=== PATIENT | male | born 1980 | race Caucasian/White ===

== ENCOUNTER 2025-05-30 01:42 | Inpatient (IN) | payer OTHER, SELFPAY ==
--- NOTE | ~2025-05-30 | XR_ITS ---
CLINICAL HISTORY: CP 1 view chest x-ray. Comparison: None provided Findings: The lungs appear clear. There is no consolidation, effusion, or pneumothorax. Cardiomediastinal silhouette is within normal limits. IMPRESSION: No acute cardiopulmonary abnormality. This document has been electronically signed by: Tang Mcpherson MD on 05/30/2025 03:21:56
[2025-05-30 01:46] VITALS: BP 130/80; PULSE 100; O2SAT 98
[2025-05-30 01:50] VITALS: BP 141/84; PULSE 98; RESP 16; TEMP 36.8; O2SAT 98; BMI 32.2
--- NOTE | 2025-05-30 02:34 | PC.NURSE ---
Pt present to the ED with complaints of an allergic reaction. states he ingested peanut butter to get to somewhere safe. He reports he heard someone yell shooting, shooting! , get him! PT also endorsing SI. VSS- respirations even and unlabored, skin intact and smooth no in any acute distress. PT noted to be picking at his skin believes as he has bed bugs under skin and in ear. Appears paranoid. Denies recreational drug use. Pt changed over, sitter at bedside. Plan of care ongoing
--- NOTE | 2025-05-30 02:35 | MHC.EDTECH ---
belongings done by security team rosana correa. all drug paraphernalia discarded by security. hatchet found secured and locked up by security. belongings searched by security and list made by them and entered by me as the tech. All belongings with the exception of the black hatchet and misc pills placed in luli port shelf 1
--- NOTE | 2025-05-30 02:38 | ECG_ITS ---
Test Reason : ALLERGIC REACTION Blood Pressure : */* mmHG Vent. Rate : 97 BPM Atrial Rate : 97 BPM P-R Int : 164 ms QRS Dur : 82 ms QT Int : 382 ms P-R-T Axes : 28 51 32 degrees QTcB Int : 485 ms Normal sinus rhythm Prolonged QT Abnormal ECG When compared with ECG of 21-Oct-2008 18:02, ST no longer elevated in Anterior leads QT has lengthened Referred By: Generic ED Physician Electronically Signed By: CARRILLO WHATLEY
[2025-05-30 04:00] VITALS: BP 123/66; PULSE 81; RESP 16; TEMP 37.1; O2SAT 95
[2025-05-30 04:03] LABS: Hematocrit 34.6 % (42.0-52.0); Hemoglobin 11.9 g/dl (14.0-18.0); Imm Gran Abs Auto 0.02 X10*3/uL (0.00-0.03); Imm Gran Pct Auto 0.4 % (0.0-0.4); Lymphocytes Absolute Auto 1.8 X10*3/uL (1.2-4.9); MANUAL DIFF FLAG NO; Mean Corpuscular HGB Conc 34.4 g/dl (31.0-36.0); Mean Corpuscular Hemoglobin 26.3 pg (27.0-33.0); Mean Corpuscular Volume 76.5 fL (80.0-98.0); NRBC Abs Auto 0.000 X10*3/uL (0.0-0.012); NRBC Pct Auto 0.0 /100WBC (0.0-0.2); Platelet Count 172 X10*3/uL (160-400); Red Blood Count 4.52 X10*6/uL (4.60-5.80); White Blood Count 5.7 X10*3/uL (4.8-10.8)
[2025-05-30 04:25] LABS: Alanine Aminotransferase 32 U/L (0-40); Albumin Level 4.1 g/dL (3.5-5.0); Alkaline Phosphatase 79 U/L (39-117); Anion Gap 13 (12-20); Aspartate Amino Transferase 62 U/L (5-37); Blood Urea Nitrogen 13 mg/dL (9-16); Calcium 9.1 mg/dL (8.4-10.2); Carbon Dioxide 24 mmol/L (22-29); Chloride 101 mmol/L (96-108); Creatinine Clr Calc Pharmacy 133.5; Estimated Glomerular Filt Rate > 60; Potassium 2.8 mmol/L (3.3-5.1); Sodium 135 mmol/L (135-145); Total Protein 7.2 g/dL (6.5-8.0)
[2025-05-30 04:52] LABS: Magnesium 1.9 mg/dL (1.6-2.6)
--- NOTE | 2025-05-30 05:05 | PC.NURSE ---
PT refusing IV placement. Educated on need d/t low potassium and risk. PT continues to refused.
[2025-05-30 06:00] VITALS: BP 115/70; PULSE 66; RESP 14; TEMP 37; O2SAT 99
[2025-05-30] MEDS: Potassium Chloride Packet 20 MEQ PACKET 40 MEQ PO (06:29)
[2025-05-30 07:57] LABS: Cannabinoid Screen Urine POSITIVE (Not Detect)
--- NOTE | 2025-05-30 08:24 | ED_ITS ---
HPI - Allergic Reaction General Chief complaint: Allergic Reaction Stated complaint: ALLERGIC REACTION ?PEANUT BUTTER Time Seen by Provider: 05/30/25 07:52 Source: patient and EMS Mode of arrival: EMS Limitations: altered mental status History of Present Illness ED Provider: HPI narrative: 44-year-old male with polysubstance use disorder, reported eating peanut butter though he states he is allergic to be in the bladder when he presented he received 50 mg intramuscular Benadryl, he has had a flat affect, reporting that someone is trying to kill him and he ate peanut butter so you can come somewhere safe. Active SI at bedside Related Data Home Medications ?Medication ?Instructions ?Recorded ?Confirmed emtricitabine 200 mg-rilpivirine 1 tab PO DAILY 05/30/25 25 mg-tenofovir alafenam 25 mg tablet (Odefsey) famotidine 40 mg tablet 40 mg PO DAILY 05/30/2505/05 Allergies Allergy/AdvReac Type Severity Reaction Status Date / Time Peanut Butter Allergy Shortness Verified 05/30/25 01:53 of Breath Review of Systems 2 Constitutional: Constitutional: Reports as per HPI [facility] Social History Social History Alcohol intake: current Alcohol intake frequency: 3 or more drinks per day Smoked in Last 30 Days: Yes Use of substances other than those prescribed or required for medical reasons: Yes Substance Use Type: Former Substance User Advance Directives: No Do you have a plan to hurt others: No Plan Physical Exam ED Vital Signs: Vital Signs - 24 hr 05/30/25 01:50 05/30/25 04:00 05/30/25 06:00 Temperature 98.3 F 98.8 F 98.6 F Pulse Rate 98 81 66 Respiratory Rate 16 16 14 Blood Pressure 141/84 H 123/66 115/70 Pulse Oximetry 98 95 99 Oxygen Delivery Method Room Air Room Air Room Air BMI result Body Mass Index 32.2 Const Other: * Gen: Somewhat sedate after Benadryl * HEENT: Uvula midline, no angioedema * Neck: Supple, no LAD * CV: RRR, no obvious murmurs appreciated * Resp: ?No wheezing rales rhonchi no stridor moving air well * Abd: ?Bowel sounds are present, no tenderness no rebound no rigidity * MSK: FROM, strength 5/5 all extremities * Skin: Warm, dry, intact, * Neuro: ?Alert and oriented x3, moving upper and lower extremities symmetrically, no obvious facial asymmetry noted * Psych: Flat affect, delusional, positive SI Medications Administered Discontinued Medications Generic Name Dose Route Start Last Admin Trade Name Marcelle PRN Reason Stop Dose Admin Potassium Chloride 40 meq 05/30/25 05:57 05/30/25 06:29 Potassium Chloride Packet 20 Meq Packet PO 05/30/25 05:58 40 meq ONCE ONE Administration Medical Decision Making Medical Decision Making [facility] Narrative: As far as peanut allergies, patient received Benadryl add I gave oral steroids, he has no angioedema, no wheezing, no respiratory distress no urticaria, he is endorsing active SI with polysubstance use disorder, anticipate that he will be psych admission Differential Diagnosis Differential Diagnoses: The differential diagnosis associated with the presentation includes Admission/Observation Consideration of admission/observation: Escalation of care including admission/observation considered Lab Data [facility] Lab Attestation statement: I reviewed the patient's lab results. 05/30/25 03:58 05/30/25 03:58 Labs: Lab Results 05/30/25 05/30/25 Range/Units 03:58 07:42 WBC 5.7 (4.8-10.8) X10*3/uL RBC 4.52 L (4.60-5.80) X10*6/uL Hgb 11.9 L (14.0-18.0) g/dl Hct 34.6 L (42.0-52.0) % MCV 76.5 L (80.0-98.0) fL MCH 26.3 L (27.0-33.0) pg MCHC 34.4 (31.0-36.0) g/dl RDW 16.4 H (11.0-16.0) % Plt Count 172 (160-400) X10*3/uL MPV 10.7 (9.4-12.4) fL Immature Gran % (Auto) 0.4 (0.0-0.4) % Neut % (Auto) 56.5 (45-73) % Lymph % (Auto) 30.8 (20-40) % [place] % (Auto) 8.8 (2-11) % Eos % (Auto) 3.3 (0-4) % Baso % (Auto) 0.2 (0-2) % Lymph # (Auto) 1.8 (1.2-4.9) X10*3/uL [place] # (Auto) 0.5 (0.1-1.2) X10*3/uL Eos # (Auto) 0.2 (0.0-0.4) X10*3/uL Baso # (Auto) 0.0 (0.0-0.2) X10*3/uL Abs Immat Gran (auto) 0.02 (0.00-0.03) X10*3/uL Absolute Neuts (auto) 3.2 (2.0-8.3) x10*3/uL Absolute Nucleated RBC 0.000 (0.0-0.012) X10*3/uL Nucleated RBC % (auto) 0.0 (0.0-0.2) /100WBC Sodium 135 (135-145) mmol/L Potassium 2.8 L* (3.3-5.1) mmol/L Chloride 101 (96-108) mmol/L Carbon Dioxide 24 (22-29) mmol/L Anion Gap 13 (12-20) BUN 13 (9-16) mg/dL Creatinine 0.81 (0.5-1.4) mg/dL Estim Creat Clear Calc 133.5 Estimated GFR > 60 Random Glucose 102 (60-115) mg/dL Calcium 9.1 (8.4-10.2) mg/dL Magnesium 1.9 (1.6-2.6) mg/dL Total Bilirubin 0.4 (0.0-1.0) mg/dL AST 62 H (5-37) U/L ALT 32 (0-40) U/L Alkaline Phosphatase 79 (39-117) U/L Total Protein 7.2 (6.5-8.0) g/dL Albumin 4.1 (3.5-5.0) g/dL Urine Opiates Screen POSITIVE H (Not Detect) Ur Buprenorphine Scrn Not Detected (Not Detect) ng/mL Ur Oxycodone Screen Not Detected (Not Detect) ng/mL Urine Methadone Screen Positive H (Not Detect) ng/mL Urine Fentanyl Screen POSITIVE H (Not Detect) Ur Barbiturates Screen Not Detected (Not Detect) Ur Phencyclidine Scrn Not Detected (Not Detect) Ur Amphetamines Screen Not Detected (Not Detect) U Benzodiazepines Scrn POSITIVE H (Not Detect) Urine Cocaine Screen POSITIVE H (Not Detect) U Marijuana (THC) Screen POSITIVE H (Not Detect) Ethyl Alcohol < 10 mg/dL Independent Interpretation I performed an independent interpretation of an: EKG (97 beats per minute otherwise normal ECG without dysrhythmia, AV sangeetha blocks or ST-T changes to suspect underlying ACS, my independent interpretation) Independent Historian Clinical information obtained from an independent historian. History obtained from or confirmed by: EMS Critical Care Time Critical Care Time Critical Care Time: Yes Total Critical Care Time: 42 Attestation: Time is exclusive of separately billable procedures. Time includes: direct patient care, patient reassessment, coordination of patient care, interpretation of data (laboratory data, pulse oximetry, arterial blood gases and chest xrays), review of patient's medical records, medical consultation and documentation of patient care. Procedures excluded from critical care time: central intravenous line placement and electrocardiography. Discharge Plan Discharge Clinical Impression: Suicidal behavior with attempted self-injury, Allergic to peanuts, Polysubstance dependence Prescriptions: No Action famotidine 40 mg tablet 40 mg PO DAILY Odefsey 200-25-25 mg tablet 1 tab PO DAILY Print Language: Angolan
--- NOTE | 2025-05-30 08:48 | MHC.CARE ---
Pt meets the criteria for inpatient level of care. Section 12a in chart. ED provider in agreement.
[2025-05-30 08:49] LABS: Appearance Urine Turbid; Glucose Urine UA Negative (Negative); PH 6.0 (5.0-9.0); Specific Gravity - Urine 1.025 (1.005-1.025)
--- NOTE | 2025-05-30 09:22 | PC.NURSE ---
patient requested his methadone dose, states hes dosed at [facility] in [place]. called to verify dose, patient is no longer at this clinic was d/c when he stopped presenting in march of 2025. patient informed
[2025-05-30 11:21] LABS: Alanine Aminotransferase 31 U/L (0-40); Albumin Level 4.0 g/dL (3.5-5.0); Alkaline Phosphatase 81 U/L (39-117); Anion Gap 7 (12-20); Aspartate Amino Transferase 51 U/L (5-37); Blood Urea Nitrogen 10 mg/dL (9-16); Calcium 9.0 mg/dL (8.4-10.2); Carbon Dioxide 28 mmol/L (22-29); Chloride 103 mmol/L (96-108); Creatinine Clr Calc Pharmacy 159.0; Estimated Glomerular Filt Rate > 60; Potassium 3.1 mmol/L (3.3-5.1); Sodium 135 mmol/L (135-145); Total Protein 7.1 g/dL (6.5-8.0)
[2025-05-30 13:15] VITALS: BP 121/71; PULSE 65; RESP 18; TEMP 36.9; O2SAT 98
--- NOTE | 2025-05-30 14:40 | HE.PHANOTE ---
Addendum entered by Alicia Otero [facility] 05/30/25 14:59: Per nurse Carito Gonzalez, he took 45 mg sunday 05/27 . Original Note: RE: METHADONE DOSING Last dose of methadone 45 mg was given daily take home, given dose for 05/26 and 05/27 per JONG Smith at [facility] [phone].
[2025-05-30] MEDS: methADONE HCl 20 MG/2 ML ORAL.CONC 30 MG PO (16:02)
[2025-05-30 16:11] VITALS: BMI 30.4
--- NOTE | 2025-05-30 17:10 | PC.ADMIT ---
Sumit is a 44yr old male, with polysubstance use disorder, being admitted to today, on a CV, for treatment of SI/CAH/HI. He presented to the ED after reportedly eating peanut butter knowing he is allergic. Sumit reported the belief that someone is trying to kill him and he knew that eating the peanut butter would get home somewhere safe. Sumit reportedly had a recent admission to [facility] a few weeks ago. He endorses SI with a plan to cut or hang himself, as well as CAH telling him to harm others. He does not specify a plan or a targeted individual. Sumit is able to contract for safety while here on the unit. He denies current community psych providers. He?s been seen by [facility] in 2022, [employer] in 2021 & was at [facility] in 2017 s/p suicide attempt. Sumit is alert, oriented x4 and cooperative with the admission process, although limited participation in further assessment. He declines to discuss trauma history, nor is there any documented. He reports being homeless in the [place] area. His skin check is unremarkable with the exception of multiple tattoos & what appears to be old self-harm cutting scars on his forearms. UTOX is positive for opiates, methadone, fentanyl, benzos, cocaine & marijuana. Sumit is active with [facility] for Methadone and his last dose was confirmed. He was oriented to the unit & has been placed on 15min safety checks. Sumit went to sleep & has declined to sign any releases at this time.
[2025-05-30 20:00] VITALS: BP 119/60; PULSE 61; RESP 16; TEMP 36.6; O2SAT 95
[2025-05-31] MEDS: methADONE HCl 20 MG/2 ML ORAL.CONC 45 MG PO (07:49)
[2025-05-31 08:00] VITALS: BP 126/63; PULSE 56; RESP 18; TEMP 36.6; O2SAT 97
[2025-05-31] MEDS: Emtricitabine/Tenofov Alafenam TABLET 1 TAB PO (08:16)
--- NOTE | 2025-05-31 08:51 | HO.PSYADMNOT ---
HPI Date of Service: 05/31/25 Chief Complaint: SI Sources of Information: patient interviewed, chart reviewed and crisis/core team assessment reviewed HPI Subjective Notes: Reyes Warning, Conditional Voluntary and 3 Day Narrative: And initially seen on 05/30/2025; seen again on 05/31/2025; patient seen with licensing engineer Joanne Patient is a 44-year-old male with history of heroin/cocaine abuse, history of inpatient admissions, who is allergic to peanut butter who self-presents with paranoid ideations prompting him to eat peanut butter to cause an allergic reaction. Regarding why patient came to the hospital: Patient says that he came to the hospital because they were going to. do something to me.. Kill me... But he does not know why. He said people with sticks and guns surrounded me... I had to make a scene like I was going to have an allergic reaction so I could get away... Patient says that I was talking to a person and people were passing by, they were looking at me, some were standing at the corner but they kept walking because they knew there were cameras. They would follow me... If I looked at them they would just passed by and pretend not to follow me... Regarding the guns and sticks, patient said that when he looked at them they would hide their guns (and sticks) in a tree so that the police would not see... But he did not actually see the gun. Patient denies any AVH. Patient denies any SI at all and or that eating peanut butter was in any way a suicide attempt; rather he reiterates that he ate the peanut butter in an attempt to get away from these people since allergic reaction would get him to the hospital. Patient said he did not have much of an allergic reaction but self presented to the hospital anyway. Patient reports daily cocaine/opiate IV use; denies any alcohol. Earlier to nursing staff he reportedly endorsed SI and CAH Past Psychiatric History: recent admission to [facility] a few weeks ago seen by [facility] in 2022, [employer] in 2021 & was at [facility] in 2017 s/p suicide attempt. [facility] for Methadone Medical Evaluation Reviewed: Yes [facility] Medical History (Updated 05/31/25 @ 16:33 by Ted Frank MD) Heroin use disorder, severe Cocaine use disorder Psychotic disorder Family History: Deferred Social History: Born in [place] Been in the [place] for about 2 years Homeless Substance History: Reports cocaine/heroin abuse since he was about 13 years old Trauma History: Defer Diagnostics Vital Signs (24Hr): Vital Signs - 24 hr 05/30/25 13:15 05/30/25 20:00 Temperature 98.5 F 97.8 F Pulse Rate 65 61 Respiratory Rate 18 16 Blood Pressure 121/71 119/60 Pulse Oximetry 98 95 Oxygen Delivery Method Room Air Room Air BMI result Body Mass Index 30.4 Labs 05/30/25 03:58 05/31/25 09:22 Labs: Laboratory Results - last 48 hr 05/30/25 05/30/25 05/30/25 03:58 07:42 10:53 WBC 5.7 RBC 4.52 L Hgb 11.9 L Hct 34.6 L MCV 76.5 L MCH 26.3 L MCHC 34.4 RDW 16.4 H Plt Count 172 MPV 10.7 Immature Gran % (Auto) 0.4 Neut % (Auto) 56.5 Lymph % (Auto) 30.8 [place] % (Auto) 8.8 Eos % (Auto) 3.3 Baso % (Auto) 0.2 Lymph # (Auto) 1.8 [place] # (Auto) 0.5 Eos # (Auto) 0.2 Baso # (Auto) 0.0 Abs Immat Gran (auto) 0.02 Absolute Neuts (auto) 3.2 Absolute Nucleated RBC 0.000 Nucleated RBC % (auto) 0.0 Sodium 135 135 Potassium 2.8 L* 3.1 L Chloride 101 103 Carbon Dioxide 24 28 Anion Gap 13 7 L BUN 13 10 Creatinine 0.81 0.68 Estim Creat Clear Calc 133.5 159.0 Estimated GFR > 60 > 60 Random Glucose 102 114 Calcium 9.1 9.0 Magnesium 1.9 Total Bilirubin 0.4 0.4 AST 62 H 51 H ALT 32 31 Alkaline Phosphatase 79 81 Total Protein 7.2 7.1 Albumin 4.1 4.0 Urine Color Dark Yellow Urine Appearance Turbid Urine pH 6.0 Ur Specific [place] 1.025 Urine Protein Trace Urine Glucose (UA) Negative Urine Ketones Trace Urine Blood Negative Urine Nitrite Negative Ur Leukocyte Esterase Negative Urine Opiates Screen POSITIVE H Ur Buprenorphine Scrn Not Detected Ur Oxycodone Screen Not Detected Urine Methadone Screen Positive H Urine Fentanyl Screen POSITIVE H Ur Barbiturates Screen Not Detected Ur Phencyclidine Scrn Not Detected Ur Amphetamines Screen Not Detected U Benzodiazepines Scrn POSITIVE H Urine Cocaine Screen POSITIVE H U Marijuana (THC) Screen POSITIVE H Ethyl Alcohol < 10 Meds/Allergies Meds Home Medications ?Medication ?Instructions ?Recorded ?Confirmed ?Type emtricitabine 200 mg-rilpivirine 1 tab PO DAILY 05/30/25 05/30/25 History 25 mg-tenofovir alafenam 25 mg tablet (Odefsey) famotidine 40 mg tablet 40 mg PO DAILY 05/30/25 05/30/25 History methadone 5 mg/5 mL oral solution 45 mg PO DAILY 05/30/25 05/30/25 History Allergies Allergies Allergy/AdvReac Type Severity Reaction Status Date / Time Peanut Butter Allergy Shortness Verified 05/30/25 01:53 of Breath Mental Status Exam Mental Status Exam Narrative: Pt is alert and oriented; behavior is isolative, guarded, mostly cooperative on approach; patient is not in distress; dressed in casual attire, disheveled; mood is described as anxious and affect congruent; eye contact appropriate; Speech is normal rate, volume and prosody and not pressured; psychomotor retardation present; thought process is goal directed, concrete; Thought content is on paranoid ideations; denies any SI/HI. Denies AVH Patients insight and judgment impaired Assessment & Plan Assessment & Plan (1) Psychotic disorder: Status: Acute Code(s): F29 - Unspecified psychosis not due to a substance or known physiological condition (2) Cocaine use disorder: Status: Acute Code(s): F14.10 - Cocaine abuse, uncomplicated (3) Heroin use disorder, severe: Status: Acute Code(s): F11.20 - Opioid dependence, uncomplicated Plan HPI: Patient is a 44-year-old male with history of heroin/cocaine abuse, history of inpatient admissions, who is allergic to peanut butter who self-presents with paranoid ideations prompting him to eat peanut butter to cause an allergic reaction. Regarding why patient came to the hospital: Patient says that he came to the hospital because they were going to. do something to me.. Kill me... But he does not know why. He said people with sticks and guns surrounded me... I had to make a scene like I was going to have an allergic reaction so I could get away... Patient says that I was talking to a person and people were passing by, they were looking at me, some were standing at the corner but they kept walking because they knew there were cameras. They would follow me... If I looked at them they would just passed by and pretend not to follow me... Regarding the guns and sticks, patient said that when he looked at them they would hide their guns (and sticks) in a tree so that the police would not see... But he did not actually see the gun. Patient denies any AVH. Patient denies any SI at all and or that eating peanut butter was in any way a suicide attempt; rather he reiterates that he ate the peanut butter in an attempt to get away from these people since allergic reaction would get him to the hospital. Patient said he did not have much of an allergic reaction but self presented to the hospital anyway. Patient reports daily cocaine/opiate IV use; denies any alcohol. Earlier to nursing staff he reportedly endorsed SI and CAH Formulation/clinical reasoning: Patient reports paranoid ideations; to technical proposal writer he denies any AVH but it seems he reported AH earlier to a nurse. Patient has a history of inpatient psychiatric admissions. Can not find any history of medication prescriptions and patient said the only psychiatric medication he has been on before was Seroquel 25 mg b.i.d.. 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 Will help treat withdrawal and consider antipsychotic medication Plan: CV Q 15 minute checks Comfort medications for opiate withdrawal Methadone 45 mg daily Consider risperidone Patient educated on: diagnosis, medication risk/benefits and substance abuse Informed Consent: does not understand Reason for continued inpatient stay Substantial Risk for: inability to function Statement Statement: I have reviewed the history and physical and performed a pertinent examination on my patient. No changes have occurred unless specified. If the History and Physical was not performed prior to admission, the Hospitalist's service will be consulted for completing the admission physical. Time Spent With Patient Time: Total time managing care of this patient today ____ minutes.
[2025-05-31 09:55] LABS: Anion Gap 11 (12-20); Blood Urea Nitrogen 11 mg/dL (9-16); Calcium 9.4 mg/dL (8.4-10.2); Carbon Dioxide 29 mmol/L (22-29); Chloride 103 mmol/L (96-108); Creatinine Clr Calc Pharmacy 134.8; Estimated Glomerular Filt Rate > 60; Potassium 3.6 mmol/L (3.3-5.1); Sodium 139 mmol/L (135-145)
[2025-05-31 09:58] LABS: Hemoglobin A1C 130.7542 umol/L; Total Hemoglobin (HGBA1C) 3425.4904 umol/L
[2025-05-31 10:05] LABS: Cholesterol 88 mg/dL (<200); HDL Cholesterol 30 mg/dL (>40); Triglycerides 60 mg/dL (<150)
[2025-05-31 16:27] VITALS: BP 110/65
--- NOTE | 2025-05-31 17:28 | PC.NURSE ---
Met with Sumit after receiving a Comprehensive Care consult from his provider. Sumit was quiet and had just woken up. After explaining care options offered and informing TW that he has been on methadone, for a long time -he expressed interest in a Invoicing Specialist facilitated through [facility]. An referral will be sent to [facility] and they will reach out directly to Sumit and set up services for him once discharged. Sumit was given [facility] information and informed of walk in hours if there is any outpatient recovery needs in the future with the exception of methadone therapy.
[2025-06-01] MEDS: methADONE HCl 20 MG/2 ML ORAL.CONC 45 MG PO (08:05)
[2025-06-01 08:17] VITALS: BP 129/74; PULSE 61; TEMP 36.1; O2SAT 95
[2025-06-01] MEDS: Emtricitabine/Tenofov Alafenam TABLET 1 TAB PO (09:35)
--- NOTE | 2025-06-01 09:44 | HO.PSYCHPN ---
Subjective Subjective Date of Service: 06/01/25 Reason For Visit: SI Interim History: met with patient; discussed with team; seen with Sustainability Purchasing Agent (Kelly) pt guarded, vague; says he's good He denies any SI or HI or CAH; senior medical writer asked about this report he gave to nursing, but patient says he does not remember ever saying those things. He says he has a little AH but does not want to talk about it...says he has no other thoughts about his report yesterday of people chasing him with guns and sticks. He agrees to start on Risperdal. confirms HIV status and says regularly attends clinic in [place] [employer] Regarding substance abuse, patient clearly says he does not want any increase in Methadone; he is ambivalent about programs pt asked about 3 day which was explained again Mental Status Exam Mental Status Exam Narrative: Pt is alert and oriented; behavior is isolative, guarded, superficially cooperative on approach; patient is not in distress; dressed in casual attire, disheveled; mood is described as good though affect constricted; eye contact appropriate; Speech is normal rate, volume and prosody and not pressured; psychomotor retardation present; thought process is goal directed, concrete; Thought content is somewhat vacant; not sure if he's thinking about paranoid ideations; denies any SI/HI. AH a little Patients insight and judgment impaired Diagnostics Vital Signs (24Hr): Vital Signs - 24 hr 05/31/25 16:27 05/31/25 20:00 06/01/25 08:17 Temperature 96.9 F Pulse Rate 61 Blood Pressure 110/65 129/74 Pulse Oximetry 95 Oxygen Delivery Method Room Air Room Air BMI result Body Mass Index 30.4 Labs 05/30/25 03:58 05/31/25 09:22 Labs: Laboratory Results - last 48 hr 05/30/25 05/31/25 10:53 09:22 Sodium 135 139 Potassium 3.1 L 3.6 Chloride 103 103 Carbon Dioxide 28 29 Anion Gap 7 L 11 L BUN 10 11 Creatinine 0.68 0.78 Estim Creat Clear Calc 159.0 134.8 Estimated GFR > 60 > 60 Random Glucose 114 91 Estimat Average Glucose 114 Hemoglobin A1c % 5.6 Calcium 9.0 9.4 Total Bilirubin 0.4 AST 51 H ALT 31 Alkaline Phosphatase 81 Total Protein 7.1 Albumin 4.0 Triglycerides 60 Cholesterol 88 LDL Cholesterol, Calc 46 HDL Cholesterol 30 L TSH 0.88 Medications Medications Current Medications Acetaminophen (Acetaminophen 325 Mg Tablet) 650 mg PO Q6H PRN PRN Reason: Headache/Pain, Scale 1-10 Al Hydroxide/Mg Hydroxide (Magnesium Hydrox/Alum Hydrox 30 Ml Oral.Susp) 30 ml PO Q6H PRN PRN Reason: Heartburn/Nausea Clonidine HCl (Clonidine Hcl 0.1 Mg Tablet) 0.1 mg PO Q4H PRN; Protocol PRN Reason: mod anxiety/withdrawal symp Last Admin: 05/31/25 16:27 Dose: 0.1 mg Cyclobenzaprine HCl (Cyclobenzaprine Hcl 10 Mg Tablet) 10 mg PO TID PRN PRN Reason: muscle aches Last Admin: 05/31/25 16:27 Dose: 10 mg Dicyclomine HCl (Dicyclomine Hcl 10 Mg Capsule) 10 mg PO TID PRN PRN Reason: stomach cramps Last Admin: 05/31/25 16:29 Dose: 10 mg Emtricitabine/Tenofovir Alafenamide (Emtricitabine/Tenofov Alafenam Tablet) 1 tab PO DAILY [facility] Last Admin: 06/01/25 09:35 Dose: 1 tab Folic Acid (Folic Acid 1 Mg Tablet) 1 mg PO DAILY [facility] Last Admin: 06/01/25 09:35 Dose: 1 mg Hydroxyzine HCl (Hydroxyzine Hcl 25 Mg Tablet) 25 mg PO Q6H PRN PRN Reason: mild anxiety Loperamide HCl (Loperamide Hcl 2 Mg Capsule) 2 mg PO Q4H PRN PRN Reason: loose stool Magnesium Hydroxide (Milk Of Magnesia 30 Ml Oral.Susp) 30 ml PO DAILY PRN PRN Reason: Constipation Methadone HCl (Methadone Hcl 20 Mg/2 Ml Oral.Conc) 45 mg PO DAILY [facility] Last Admin: 06/01/25 08:05 Dose: 45 mg Nicotine (Nicotine 21 Mg Patch.Td24) 21 mg TRANSDERMA DAILY PRN PRN Reason: smoking cessation Nicotine Polacrilex (Nicotine Polacrilex 2 Mg Gum) 4 mg BUCCAL Q2H PRN PRN Reason: Nicotine Cravings Last Admin: 05/30/25 18:40 Dose: 4 mg Olanzapine (Olanzapine 5 Mg Tablet) 5 mg PO TID PRN PRN Reason: agitation Rilpivirine (Rilpivirine Hcl 25 Mg Tablet) 25 mg PO DAILY [facility] Last Admin: 06/01/25 09:35 Dose: 25 mg Thiamine HCl (Thiamine Hcl 100 Mg Tablet) 100 mg PO DAILY [facility] Last Admin: 06/01/25 09:35 Dose: 100 mg Trazodone HCl (Trazodone Hcl 50 Mg Tablet) 50 mg PO BEDTIME MRX1 PRN PRN Reason: Insomnia Allergies Allergies Allergy/AdvReac Type Severity Reaction Status Date / Time Peanut Butter Allergy Shortness Verified 05/30/25 01:53 of Breath Assessment & Plan Assessment & Plan (1) Psychotic disorder: Status: Acute Code(s): F29 - Unspecified psychosis not due to a substance or known physiological condition (2) Cocaine use disorder: Status: Acute Code(s): F14.10 - Cocaine abuse, uncomplicated (3) Heroin use disorder, severe: Status: Acute Code(s): F11.20 - Opioid dependence, uncomplicated (4) HIV (human immunodeficiency virus infection): Status: Acute Code(s): Z21 - Asymptomatic human immunodeficiency virus [HIV] infection status Plan HPI: Patient is a 44-year-old male with history of heroin/cocaine abuse, history of inpatient admissions, who is allergic to peanut butter who self-presents with paranoid ideations prompting him to eat peanut butter to cause an allergic reaction. Regarding why patient came to the hospital: Patient says that he came to the hospital because they were going to. do something to me.. Kill me... But he does not know why. He said people with sticks and guns surrounded me... I had to make a scene like I was going to have an allergic reaction so I could get away... Patient says that I was talking to a person and people were passing by, they were looking at me, some were standing at the corner but they kept walking because they knew there were cameras. They would follow me... If I looked at them they would just passed by and pretend not to follow me... Regarding the guns and sticks, patient said that when he looked at them they would hide their guns (and sticks) in a tree so that the police would not see... But he did not actually see the gun. Patient denies any AVH. Patient denies any SI at all and or that eating peanut butter was in any way a suicide attempt; rather he reiterates that he ate the peanut butter in an attempt to get away from these people since allergic reaction would get him to the hospital. Patient said he did not have much of an allergic reaction but self presented to the hospital anyway. Patient reports daily cocaine/opiate IV use; denies any alcohol. Earlier to nursing staff he reportedly endorsed SI and CAH Formulation/clinical reasoning: Patient reports paranoid ideations; to senior medical writer he denies any AVH but it seems he reported AH earlier to a nurse. Patient has a history of inpatient psychiatric admissions. Can not find any history of medication prescriptions and patient said the only psychiatric medication he has been on before was Seroquel 25 mg b.i.d.. 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 Will help treat withdrawal and consider antipsychotic medication Hospital course: 06/01 pt guarded, vague; says he's good He denies any SI or HI or CAH; senior medical writer asked about this report he gave to nursing, but patient says he does not remember ever saying those things. He says he has a little AH but does not want to talk about it...says he has no other thoughts about his report yesterday of people chasing him with guns and sticks. He agrees to start on Risperdal. -confirms HIV status and says regularly attends clinic in [place] -Regarding substance abuse, patient clearly says he does not want any increase in Methadone; he is ambivalent about programs -pt asked about 3 day which was explained again Plan: CV Q 15 minute checks Comfort medications for opiate withdrawal Methadone 45 mg daily Start Risperdal 1mg bID Patient educated on: diagnosis, medication risk/benefits, substance abuse, therapeutic strategies and medical condition Informed Consent: understands Reason for continued inpatient stay Substantial Risk for: stable for discharge, rapid decompensation and med/psych decompensation Time Spent With Patient Time: Total time managing care of this patient today ____ minutes.
--- NOTE | 2025-06-02 00:09 | MHC.RECOVRN ---
TW met with the patient on 05/31/25? in 506-1 to discuss current substance use and concerns related to increased risk of substance and related problems after a consult was placed to addiction medicine for polysubstance use. On approach pt was laying in bed, blanket over head, assumingly sleeping. Pt woke to name being called and agreed to meet with tw. Pt reported receiving 45mg of methadone daily at [facility] but states he continues to use substances including opiates, cocaine, and marijuana. He reported experiencing withdrawal symptoms of sweating, stomach cramping and diarrhea. He asked for his methadone to be increased by 5mg. This information was relayed to primary provider Ted Frank.? Pt reported several instances of overdoses in the past but denied the use of narcan. He reports several detox admissions but is unable to recall names of facilities or dates of treatment. Pt states he is currently unhoused and lacks any recovery support other than his OTP clinic, [facility].? Discussed how substance use has impacted health, including negative impact on mental health and overall physical well being.? Discussed risk and reduction strategies including utilizing [employer] for clean supplies and drug testing, never using alone, and having Narcan readily available.? Provided pt with written resources including information on inpatient and outpatient treatment, MOUD, harm reduction, and recovery coaching.? Also provided pt with information on the multiple pathways to recovery and a local NA meeting list. Pt reports he will continue methadone dosing at [facility] upon discharge and declines further intervention or outpatient appt for treatment related to OUD at this time. ? Pt was provided with TW?s contact information if questions or concerns arise. Pt denies further questions or concerns at this time.?
[2025-06-02] MEDS: methADONE HCl 20 MG/2 ML ORAL.CONC 45 MG PO (07:58)
[2025-06-02 08:30] VITALS: BP 99/55; PULSE 70; RESP 18; TEMP 36.8; O2SAT 97
[2025-06-02] MEDS: Emtricitabine/Tenofov Alafenam TABLET 1 TAB PO (08:59)
--- NOTE | 2025-06-02 12:44 | P.PNPSI_ITS ---
Subjective Subjective Date of Service: 06/02/25 Reason For Visit: SI Interim History: Laying in bed. Sleeping most of day. Guarded. Patient reports feeling fine ; he reports sleeping okay last night. declined to meet with T/W. denies SI/HI/VH/AH. Continue current tx plan. Medication Compliance: Yes Side effects from medications: No Attending Groups: No Mental Status Exam Mental Status Exam Patient Appearance: Disheveled Patient Orientation: Person, Place, Time and Situation Level of Consciousness: Drowsy Patient Behavior: Guarded Mood Description: Calm Affect Description: Calm Ability to Follow Directions: Good Speech Pattern: Clear Memory Description: Intact Hallucinations: None Delusions: Not Present Thought Process: Intact Thought Content: positive for Intact Diagnostics Vital Signs (24Hr): Vital Signs - 24 hr 06/02/25 08:30 Temperature 98.2 F Pulse Rate 70 Respiratory Rate 18 Blood Pressure 99/55 L Pulse Oximetry 97 Oxygen Delivery Method Room Air BMI result Body Mass Index 30.4 Labs 05/30/25 03:58 05/31/25 09:22 Medications Medications Current Medications Acetaminophen (Acetaminophen 325 Mg Tablet) 650 mg PO Q6H PRN PRN Reason: Headache/Pain, Scale 1-10 Last Admin: 06/01/25 22:01 Dose: 650 mg Al Hydroxide/Mg Hydroxide (Magnesium Hydrox/Alum Hydrox 30 Ml Oral.Susp) 30 ml PO Q6H PRN PRN Reason: Heartburn/Nausea Clonidine HCl (Clonidine Hcl 0.1 Mg Tablet) 0.1 mg PO Q4H PRN; Protocol PRN Reason: mod anxiety/withdrawal symp Last Admin: 05/31/25 16:27 Dose: 0.1 mg Cyclobenzaprine HCl (Cyclobenzaprine Hcl 10 Mg Tablet) 10 mg PO TID PRN PRN Reason: muscle aches Last Admin: 06/02/25 09:01 Dose: 10 mg Dicyclomine HCl (Dicyclomine Hcl 10 Mg Capsule) 10 mg PO TID PRN PRN Reason: stomach cramps Last Admin: 05/31/25 16:29 Dose: 10 mg Emtricitabine/Tenofovir Alafenamide (Emtricitabine/Tenofov Alafenam Tablet) 1 tab PO DAILY [facility] Last Admin: 06/02/25 08:59 Dose: 1 tab Folic Acid (Folic Acid 1 Mg Tablet) 1 mg PO DAILY [facility] Last Admin: 06/02/25 08:59 Dose: 1 mg Hydroxyzine HCl (Hydroxyzine Hcl 25 Mg Tablet) 25 mg PO Q6H PRN PRN Reason: mild anxiety Loperamide HCl (Loperamide Hcl 2 Mg Capsule) 2 mg PO Q4H PRN PRN Reason: loose stool Magnesium Hydroxide (Milk Of Magnesia 30 Ml Oral.Susp) 30 ml PO DAILY PRN PRN Reason: Constipation Methadone HCl (Methadone Hcl 20 Mg/2 Ml Oral.Conc) 45 mg PO DAILY [facility] Last Admin: 06/02/25 07:58 Dose: 45 mg Nicotine (Nicotine 21 Mg Patch.Td24) 21 mg TRANSDERMA DAILY PRN PRN Reason: smoking cessation Nicotine Polacrilex (Nicotine Polacrilex 2 Mg Gum) 4 mg BUCCAL Q2H PRN PRN Reason: Nicotine Cravings Last Admin: 05/30/25 18:40 Dose: 4 mg Olanzapine (Olanzapine 5 Mg Tablet) 5 mg PO TID PRN PRN Reason: agitation Rilpivirine (Rilpivirine Hcl 25 Mg Tablet) 25 mg PO DAILY [facility] Last Admin: 06/02/25 08:59 Dose: 25 mg Risperidone (Risperidone 1 Mg Tablet) 1 mg PO BID [facility] Last Admin: 06/02/25 08:59 Dose: 1 mg Thiamine HCl (Thiamine Hcl 100 Mg Tablet) 100 mg PO DAILY [facility] Last Admin: 06/02/25 08:59 Dose: 100 mg Trazodone HCl (Trazodone Hcl 50 Mg Tablet) 50 mg PO BEDTIME MRX1 PRN PRN Reason: Insomnia Allergies Allergies Allergy/AdvReac Type Severity Reaction Status Date / Time Peanut Butter Allergy Shortness Verified 05/30/25 01:53 of Breath Assessment & Plan Assessment & Plan (1) Psychotic disorder: Status: Acute Code(s): F29 - Unspecified psychosis not due to a substance or known physiological condition (2) Cocaine use disorder: Status: Acute Code(s): F14.10 - Cocaine abuse, uncomplicated (3) Heroin use disorder, severe: Status: Acute Code(s): F11.20 - Opioid dependence, uncomplicated (4) HIV (human immunodeficiency virus infection): Status: Acute Code(s): Z21 - Asymptomatic human immunodeficiency virus [HIV] infection status Plan HPI: Patient is a 44-year-old male with history of heroin/cocaine abuse, history of inpatient admissions, who is allergic to peanut butter who self-presents with paranoid ideations prompting him to eat peanut butter to cause an allergic reaction. Regarding why patient came to the hospital: Patient says that he came to the hospital because they were going to. do something to me.. Kill me... But he does not know why. He said people with sticks and guns surrounded me... I had to make a scene like I was going to have an allergic reaction so I could get away... Patient says that I was talking to a person and people were passing by, they were looking at me, some were standing at the corner but they kept walking because they knew there were cameras. They would follow me... If I looked at them they would just passed by and pretend not to follow me... Regarding the guns and sticks, patient said that when he looked at them they would hide their guns (and sticks) in a tree so that the police would not see... But he did not actually see the gun. Patient denies any AVH. Patient denies any SI at all and or that eating peanut butter was in any way a suicide attempt; rather he reiterates that he ate the peanut butter in an attempt to get away from these people since allergic reaction would get him to the hospital. Patient said he did not have much of an allergic reaction but self presented to the hospital anyway. Patient reports daily cocaine/opiate IV use; denies any alcohol. Earlier to nursing staff he reportedly endorsed SI and CAH Formulation/clinical reasoning: Patient reports paranoid ideations; to documentation writer he denies any AVH but it seems he reported AH earlier to a nurse. Patient has a history of inpatient psychiatric admissions. Can not find any history of medication prescriptions and patient said the only psychiatric medication he has been on before was Seroquel 25 mg b.i.d.. 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 Will help treat withdrawal and consider antipsychotic medication Hospital course: 06/01 pt guarded, vague; says he's good He denies any SI or HI or CAH; documentation writer asked about this report he gave to nursing, but patient says he does not remember ever saying those things. He says he has a little AH but does not want to talk about it...says he has no other thoughts about his report yesterday of people chasing him with guns and sticks. He agrees to start on Risperdal. -confirms HIV status and says regularly attends clinic in [place] -Regarding substance abuse, patient clearly says he does not want any increase in Methadone; he is ambivalent about programs -pt asked about 3 day which was explained again 06/02: Laying in bed. Sleeping most of day. Guarded. Patient reports feeling fine ; he reports sleeping okay last night. declined to meet with T/W. denies SI/HI/VH/AH. Continue current tx plan. Plan: CV Q 15 minute checks Comfort medications for opiate withdrawal Methadone 45 mg daily Start Risperdal 1mg bID Patient educated on: medication risk/benefits Reason for continued inpatient stay Substantial Risk for: med/psych decompensation Time Spent With Patient Time: Total time managing care of this patient today _10___ minutes.
[2025-06-02 20:00] VITALS: BP 124/57; PULSE 73; TEMP 36.8; O2SAT 98
[2025-06-03] MEDS: methADONE HCl 20 MG/2 ML ORAL.CONC 45 MG PO (07:43)
[2025-06-03 08:00] VITALS: BP 109/61; PULSE 68; RESP 16; TEMP 37.1; O2SAT 100
[2025-06-03] MEDS: Emtricitabine/Tenofov Alafenam TABLET 1 TAB PO (08:44)
[2025-06-03] MEDS: Nicotine 21 MG PATCH.TD24 TRANSDERMA (11:13)
--- NOTE | 2025-06-03 12:05 | P.PNPSI_ITS ---
Subjective Subjective Date of Service: 06/03/25 Reason For Visit: SI Interim History: Active on unit. keeping to self. pacing unit hallway while listening to music. Patient reports feeling okay ; denies SI/HI/VH/AH. Continue current tx plan. Medication Compliance: Yes Side effects from medications: No Attending Groups: No Mental Status Exam Mental Status Exam Patient Appearance: Well Grooomed Patient Orientation: Person, Place, Time and Situation Level of Consciousness: Awake Patient Behavior: Guarded Mood Description: Calm Affect Description: Calm Ability to Follow Directions: Good Speech Pattern: Clear Memory Description: Intact Hallucinations: None Delusions: Not Present Thought Process: Intact Thought Content: positive for Intact Diagnostics Vital Signs (24Hr): Vital Signs - 24 hr 06/02/25 20:00 06/03/25 08:00 Temperature 98.2 F 98.7 F Pulse Rate 73 68 Respiratory Rate 16 Blood Pressure 124/57 L 109/61 Pulse Oximetry 98 100 Oxygen Delivery Method Room Air Room Air BMI result Body Mass Index 30.4 Labs 05/30/25 03:58 05/31/25 09:22 Medications Medications Current Medications Acetaminophen (Acetaminophen 325 Mg Tablet) 650 mg PO Q6H PRN PRN Reason: Headache/Pain, Scale 1-10 Last Admin: 06/02/25 21:16 Dose: 650 mg Al Hydroxide/Mg Hydroxide (Magnesium Hydrox/Alum Hydrox 30 Ml Oral.Susp) 30 ml PO Q6H PRN PRN Reason: Heartburn/Nausea Clonidine HCl (Clonidine Hcl 0.1 Mg Tablet) 0.1 mg PO Q4H PRN; Protocol PRN Reason: mod anxiety/withdrawal symp Last Admin: 05/31/25 16:27 Dose: 0.1 mg Cyclobenzaprine HCl (Cyclobenzaprine Hcl 10 Mg Tablet) 10 mg PO TID PRN PRN Reason: muscle aches Last Admin: 06/02/25 21:17 Dose: 10 mg Dicyclomine HCl (Dicyclomine Hcl 10 Mg Capsule) 10 mg PO TID PRN PRN Reason: stomach cramps Last Admin: 05/31/25 16:29 Dose: 10 mg Emtricitabine/Tenofovir Alafenamide (Emtricitabine/Tenofov Alafenam Tablet) 1 tab PO DAILY [facility] Last Admin: 06/03/25 08:44 Dose: 1 tab Folic Acid (Folic Acid 1 Mg Tablet) 1 mg PO DAILY [facility] Last Admin: 06/03/25 08:45 Dose: 1 mg Hydroxyzine HCl (Hydroxyzine Hcl 25 Mg Tablet) 25 mg PO Q6H PRN PRN Reason: mild anxiety Loperamide HCl (Loperamide Hcl 2 Mg Capsule) 2 mg PO Q4H PRN PRN Reason: loose stool Magnesium Hydroxide (Milk Of Magnesia 30 Ml Oral.Susp) 30 ml PO DAILY PRN PRN Reason: Constipation Methadone HCl (Methadone Hcl 20 Mg/2 Ml Oral.Conc) 45 mg PO DAILY [facility] Last Admin: 06/03/25 07:43 Dose: 45 mg Nicotine (Nicotine 21 Mg Patch.Td24) 21 mg TRANSDERMA DAILY PRN PRN Reason: smoking cessation Last Admin: 06/03/25 11:13 Dose: 21 mg Nicotine Polacrilex (Nicotine Polacrilex 2 Mg Gum) 4 mg BUCCAL Q2H PRN PRN Reason: Nicotine Cravings Last Admin: 06/03/25 11:13 Dose: 4 mg Olanzapine (Olanzapine 5 Mg Tablet) 5 mg PO TID PRN PRN Reason: agitation Rilpivirine (Rilpivirine Hcl 25 Mg Tablet) 25 mg PO DAILY [facility] Last Admin: 06/03/25 08:44 Dose: 25 mg Risperidone (Risperidone 1 Mg Tablet) 1 mg PO BID [facility] Last Admin: 06/03/25 08:44 Dose: 1 mg Thiamine HCl (Thiamine Hcl 100 Mg Tablet) 100 mg PO DAILY [facility] Last Admin: 06/03/25 08:44 Dose: 100 mg Trazodone HCl (Trazodone Hcl 50 Mg Tablet) 50 mg PO BEDTIME MRX1 PRN PRN Reason: Insomnia Allergies Allergies Allergy/AdvReac Type Severity Reaction Status Date / Time Peanut Butter Allergy Shortness Verified 05/30/25 01:53 of Breath Assessment & Plan Assessment & Plan (1) Psychotic disorder: Status: Acute Code(s): F29 - Unspecified psychosis not due to a substance or known physiological condition (2) Cocaine use disorder: Status: Acute Code(s): F14.10 - Cocaine abuse, uncomplicated (3) Heroin use disorder, severe: Status: Acute Code(s): F11.20 - Opioid dependence, uncomplicated (4) HIV (human immunodeficiency virus infection): Status: Acute Code(s): Z21 - Asymptomatic human immunodeficiency virus [HIV] infection status Plan HPI: Patient is a 44-year-old male with history of heroin/cocaine abuse, history of inpatient admissions, who is allergic to peanut butter who self-presents with paranoid ideations prompting him to eat peanut butter to cause an allergic reaction. Regarding why patient came to the hospital: Patient says that he came to the hospital because they were going to. do something to me.. Kill me... But he does not know why. He said people with sticks and guns surrounded me... I had to make a scene like I was going to have an allergic reaction so I could get away... Patient says that I was talking to a person and people were passing by, they were looking at me, some were standing at the corner but they kept walking because they knew there were cameras. They would follow me... If I looked at them they would just passed by and pretend not to follow me... Regarding the guns and sticks, patient said that when he looked at them they would hide their guns (and sticks) in a tree so that the police would not see... But he did not actually see the gun. Patient denies any AVH. Patient denies any SI at all and or that eating peanut butter was in any way a suicide attempt; rather he reiterates that he ate the peanut butter in an attempt to get away from these people since allergic reaction would get him to the hospital. Patient said he did not have much of an allergic reaction but self presented to the hospital anyway. Patient reports daily cocaine/opiate IV use; denies any alcohol. Earlier to nursing staff he reportedly endorsed SI and CAH Formulation/clinical reasoning: Patient reports paranoid ideations; to telegraphic typewriter operator he denies any AVH but it seems he reported AH earlier to a nurse. Patient has a history of inpatient psychiatric admissions. Can not find any history of medication prescriptions and patient said the only psychiatric medication he has been on before was Seroquel 25 mg b.i.d.. 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 Will help treat withdrawal and consider antipsychotic medication Hospital course: 06/01 pt guarded, vague; says he's good He denies any SI or HI or CAH; telegraphic typewriter operator asked about this report he gave to nursing, but patient says he does not remember ever saying those things. He says he has a little AH but does not want to talk about it...says he has no other thoughts about his report yesterday of people chasing him with guns and sticks. He agrees to start on Risperdal. -confirms HIV status and says regularly attends clinic in [place] -Regarding substance abuse, patient clearly says he does not want any increase in Methadone; he is ambivalent about programs -pt asked about 3 day which was explained again 06/02: Laying in bed. Sleeping most of day. Guarded. Patient reports feeling fine ; he reports sleeping okay last night. declined to meet with T/W. denies SI/HI/VH/AH. Continue current tx plan. 06/03: Active on unit. keeping to self. pacing unit hallway while listening to music. Patient reports feeling okay ; denies SI/HI/VH/AH. Continue current tx plan. Plan: CV Q 15 minute checks Comfort medications for opiate withdrawal Methadone 45 mg daily Start Risperdal 1mg bID Patient educated on: diagnosis and medication risk/benefits Reason for continued inpatient stay Substantial Risk for: med/psych decompensation Time Spent With Patient Time: Total time managing care of this patient today _15___ minutes.
[2025-06-03 19:47] VITALS: BP 112/70; PULSE 86; RESP 16; TEMP 36.8; O2SAT 99
[2025-06-04] MEDS: methADONE HCl 20 MG/2 ML ORAL.CONC 45 MG PO (07:51)
[2025-06-04 08:00] VITALS: BP 114/64; PULSE 74; RESP 16; TEMP 36.6; O2SAT 96
[2025-06-04] MEDS: Nicotine 21 MG PATCH.TD24 TRANSDERMA (08:40)
[2025-06-04] MEDS: Emtricitabine/Tenofov Alafenam TABLET 1 TAB PO (08:41)
--- NOTE | 2025-06-04 11:53 | P.PNPSI_ITS ---
Subjective Subjective Date of Service: 06/04/25 Reason For Visit: SI Interim History: Napping most of morning. Guarded. Patient reports feeling okay ; pt stated, I just want to go home . denies SI/HI/VH/AH. Continue current tx plan. Medication Compliance: Yes Side effects from medications: No Attending Groups: No Mental Status Exam Mental Status Exam Patient Appearance: Well Grooomed Patient Orientation: Person, Place, Time and Situation Level of Consciousness: Drowsy Patient Behavior: Guarded Mood Description: Calm Affect Description: Calm Ability to Follow Directions: Good Speech Pattern: Clear Memory Description: Intact Hallucinations: None Delusions: Not Present Thought Process: Intact Thought Content: positive for Intact Diagnostics Vital Signs (24Hr): Vital Signs - 24 hr 06/03/25 19:47 06/04/25 08:00 Temperature 98.2 F 98 F Pulse Rate 86 74 Respiratory Rate 16 16 Blood Pressure 112/70 114/64 Pulse Oximetry 99 96 Oxygen Delivery Method Room Air Room Air BMI result Body Mass Index 30.4 Labs 05/30/25 03:58 05/31/25 09:22 Medications Medications Current Medications Acetaminophen (Acetaminophen 325 Mg Tablet) 650 mg PO Q6H PRN PRN Reason: Headache/Pain, Scale 1-10 Last Admin: 06/02/25 21:16 Dose: 650 mg Al Hydroxide/Mg Hydroxide (Magnesium Hydrox/Alum Hydrox 30 Ml Oral.Susp) 30 ml PO Q6H PRN PRN Reason: Heartburn/Nausea Clonidine HCl (Clonidine Hcl 0.1 Mg Tablet) 0.1 mg PO Q4H PRN; Protocol PRN Reason: mod anxiety/withdrawal symp Last Admin: 05/31/25 16:27 Dose: 0.1 mg Cyclobenzaprine HCl (Cyclobenzaprine Hcl 10 Mg Tablet) 10 mg PO TID PRN PRN Reason: muscle aches Last Admin: 06/03/25 21:38 Dose: 10 mg Dicyclomine HCl (Dicyclomine Hcl 10 Mg Capsule) 10 mg PO TID PRN PRN Reason: stomach cramps Last Admin: 05/31/25 16:29 Dose: 10 mg Emtricitabine/Tenofovir Alafenamide (Emtricitabine/Tenofov Alafenam Tablet) 1 tab PO DAILY [facility] Last Admin: 06/04/25 08:41 Dose: 1 tab Folic Acid (Folic Acid 1 Mg Tablet) 1 mg PO DAILY [facility] Last Admin: 06/04/25 08:41 Dose: 1 mg Hydroxyzine HCl (Hydroxyzine Hcl 25 Mg Tablet) 25 mg PO Q6H PRN PRN Reason: mild anxiety Loperamide HCl (Loperamide Hcl 2 Mg Capsule) 2 mg PO Q4H PRN PRN Reason: loose stool Magnesium Hydroxide (Milk Of Magnesia 30 Ml Oral.Susp) 30 ml PO DAILY PRN PRN Reason: Constipation Methadone HCl (Methadone Hcl 20 Mg/2 Ml Oral.Conc) 45 mg PO DAILY [facility] Last Admin: 06/04/25 07:51 Dose: 45 mg Nicotine (Nicotine 21 Mg Patch.Td24) 21 mg TRANSDERMA DAILY PRN PRN Reason: smoking cessation Last Admin: 06/04/25 08:40 Dose: 21 mg Nicotine Polacrilex (Nicotine Polacrilex 2 Mg Gum) 4 mg BUCCAL Q2H PRN PRN Reason: Nicotine Cravings Last Admin: 06/04/25 08:43 Dose: 4 mg Olanzapine (Olanzapine 5 Mg Tablet) 5 mg PO TID PRN PRN Reason: agitation Rilpivirine (Rilpivirine Hcl 25 Mg Tablet) 25 mg PO DAILY [facility] Last Admin: 06/04/25 08:41 Dose: 25 mg Risperidone (Risperidone 1 Mg Tablet) 1 mg PO BID [facility] Last Admin: 06/04/25 08:41 Dose: 1 mg Thiamine HCl (Thiamine Hcl 100 Mg Tablet) 100 mg PO DAILY [facility] Last Admin: 06/04/25 08:41 Dose: 100 mg Trazodone HCl (Trazodone Hcl 50 Mg Tablet) 50 mg PO BEDTIME MRX1 PRN PRN Reason: Insomnia Allergies Allergies Allergy/AdvReac Type Severity Reaction Status Date / Time Peanut Butter Allergy Shortness Verified 05/30/25 01:53 of Breath Assessment & Plan Assessment & Plan (1) Psychotic disorder: Status: Acute Code(s): F29 - Unspecified psychosis not due to a substance or known physiological condition (2) Cocaine use disorder: Status: Acute Code(s): F14.10 - Cocaine abuse, uncomplicated (3) Heroin use disorder, severe: Status: Acute Code(s): F11.20 - Opioid dependence, uncomplicated (4) HIV (human immunodeficiency virus infection): Status: Acute Code(s): Z21 - Asymptomatic human immunodeficiency virus [HIV] infection status Plan HPI: Patient is a 44-year-old male with history of heroin/cocaine abuse, history of inpatient admissions, who is allergic to peanut butter who self-presents with paranoid ideations prompting him to eat peanut butter to cause an allergic reaction. Regarding why patient came to the hospital: Patient says that he came to the hospital because they were going to. do something to me.. Kill me... But he does not know why. He said people with sticks and guns surrounded me... I had to make a scene like I was going to have an allergic reaction so I could get away... Patient says that I was talking to a person and people were passing by, they were looking at me, some were standing at the corner but they kept walking because they knew there were cameras. They would follow me... If I looked at them they would just passed by and pretend not to follow me... Regarding the guns and sticks, patient said that when he looked at them they would hide their guns (and sticks) in a tree so that the police would not see... But he did not actually see the gun. Patient denies any AVH. Patient denies any SI at all and or that eating peanut butter was in any way a suicide attempt; rather he reiterates that he ate the peanut butter in an attempt to get away from these people since allergic reaction would get him to the hospital. Patient said he did not have much of an allergic reaction but self presented to the hospital anyway. Patient reports daily cocaine/opiate IV use; denies any alcohol. Earlier to nursing staff he reportedly endorsed SI and CAH Formulation/clinical reasoning: Patient reports paranoid ideations; to information writer he denies any AVH but it seems he reported AH earlier to a nurse. Patient has a history of inpatient psychiatric admissions. Can not find any history of medication prescriptions and patient said the only psychiatric medication he has been on before was Seroquel 25 mg b.i.d.. 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 Will help treat withdrawal and consider antipsychotic medication Hospital course: 06/01 pt guarded, vague; says he's good He denies any SI or HI or CAH; information writer asked about this report he gave to nursing, but patient says he does not remember ever saying those things. He says he has a little AH but does not want to talk about it...says he has no other thoughts about his report yesterday of people chasing him with guns and sticks. He agrees to start on Risperdal. -confirms HIV status and says regularly attends clinic in [place] -Regarding substance abuse, patient clearly says he does not want any increase in Methadone; he is ambivalent about programs -pt asked about 3 day which was explained again 06/02: Laying in bed. Sleeping most of day. Guarded. Patient reports feeling fine ; he reports sleeping okay last night. declined to meet with T/W. denies SI/HI/VH/AH. Continue current tx plan. 06/03: Active on unit. keeping to self. pacing unit hallway while listening to music. Patient reports feeling okay ; denies SI/HI/VH/AH. Continue current tx plan. 06/04: Continue current tx plan. Plan: CV Q 15 minute checks Comfort medications for opiate withdrawal Methadone 45 mg daily Start Risperdal 1mg bID Patient educated on: medication risk/benefits Reason for continued inpatient stay Substantial Risk for: med/psych decompensation Time Spent With Patient Time: Total time managing care of this patient today _15___ minutes.
[2025-06-04] MEDS: Milk of Magnesia 30 ML ORAL.SUSP PO (18:14)
[2025-06-04 20:00] VITALS: BP 127/78; PULSE 102; RESP 18; TEMP 36.6; O2SAT 98
[2025-06-05] MEDS: methADONE HCl 20 MG/2 ML ORAL.CONC 45 MG PO (07:59)
[2025-06-05 08:00] VITALS: BP 138/67; PULSE 63; TEMP 36.9; O2SAT 98
[2025-06-05] MEDS: Emtricitabine/Tenofov Alafenam TABLET 1 TAB PO (08:50)
[2025-06-05] MEDS: Nicotine 21 MG PATCH.TD24 TRANSDERMA (08:51)
--- NOTE | 2025-06-05 09:35 | HO.PSYCHPN ---
Subjective Subjective Date of Service: 06/05/25 Reason For Visit: SI Interim History: met with patient; discussed with team; reviewed chart Patient reports that he is doing better, mood is better, no SI, no AVH and that he would like to discharge tomorrow. Says he is still feeling anxious and clonidine has not helped (though he has only tried it once); reviewed options and patient mentioned gabapentin however he is discharging tomorrow and struggles with substance abuse thus scientific writer did not think it was a good time to start this medication. Patient says he still has some worries about the people that chased him with guns but overall not thinking about it too much Mental Status Exam Mental Status Exam Narrative: Pt is alert and oriented; behavior is cooperative, friendly on approach and calm; patient is not in distress; dressed in casual attire with braided hair and adequate hygiene; mood is described as good and affect congruent, brighter; eye contact appropriate; Speech is normal rate, volume and prosody and not pressured; no psychomotor agitation/retardation present; thought process is organized and goal directed; Thought content is on discharge; no overt delusional thinking; denies any SI/HI. Denies AVH and there is no evidence of perceptual disturbance. Patients insight and judgment fair. Diagnostics Vital Signs (24Hr): Vital Signs - 24 hr 06/04/25 20:00 06/05/25 08:00 Temperature 98 F 98.4 F Pulse Rate 102 H 63 Respiratory Rate 18 Blood Pressure 127/78 138/67 Pulse Oximetry 98 98 Oxygen Delivery Method Room Air Room Air BMI result Body Mass Index 30.4 Labs 05/30/25 03:58 05/31/25 09:22 Medications Medications Current Medications Acetaminophen (Acetaminophen 325 Mg Tablet) 650 mg PO Q6H PRN PRN Reason: Headache/Pain, Scale 1-10 Last Admin: 06/04/25 21:52 Dose: 650 mg Al Hydroxide/Mg Hydroxide (Magnesium Hydrox/Alum Hydrox 30 Ml Oral.Susp) 30 ml PO Q6H PRN PRN Reason: Heartburn/Nausea Clonidine HCl (Clonidine Hcl 0.1 Mg Tablet) 0.1 mg PO Q4H PRN; Protocol PRN Reason: mod anxiety/withdrawal symp Last Admin: 05/31/25 16:27 Dose: 0.1 mg Cyclobenzaprine HCl (Cyclobenzaprine Hcl 10 Mg Tablet) 10 mg PO TID PRN PRN Reason: muscle aches Last Admin: 06/04/25 21:53 Dose: 10 mg Dicyclomine HCl (Dicyclomine Hcl 10 Mg Capsule) 10 mg PO TID PRN PRN Reason: stomach cramps Last Admin: 05/31/25 16:29 Dose: 10 mg Emtricitabine/Tenofovir Alafenamide (Emtricitabine/Tenofov Alafenam Tablet) 1 tab PO DAILY [facility] Last Admin: 06/05/25 08:50 Dose: 1 tab Folic Acid (Folic Acid 1 Mg Tablet) 1 mg PO DAILY [facility] Last Admin: 06/05/25 08:50 Dose: 1 mg Hydroxyzine HCl (Hydroxyzine Hcl 25 Mg Tablet) 25 mg PO Q6H PRN PRN Reason: mild anxiety Loperamide HCl (Loperamide Hcl 2 Mg Capsule) 2 mg PO Q4H PRN PRN Reason: loose stool Magnesium Hydroxide (Milk Of Magnesia 30 Ml Oral.Susp) 30 ml PO DAILY PRN PRN Reason: Constipation Last Admin: 06/04/25 18:14 Dose: 30 ml Methadone HCl (Methadone Hcl 20 Mg/2 Ml Oral.Conc) 45 mg PO DAILY [facility] Last Admin: 06/05/25 07:59 Dose: 45 mg Nicotine (Nicotine 21 Mg Patch.Td24) 21 mg TRANSDERMA DAILY PRN PRN Reason: smoking cessation Last Admin: 06/05/25 08:51 Dose: 21 mg Nicotine Polacrilex (Nicotine Polacrilex 2 Mg Gum) 4 mg BUCCAL Q2H PRN PRN Reason: Nicotine Cravings Last Admin: 06/05/25 08:51 Dose: 4 mg Olanzapine (Olanzapine 5 Mg Tablet) 5 mg PO TID PRN PRN Reason: agitation Rilpivirine (Rilpivirine Hcl 25 Mg Tablet) 25 mg PO DAILY [facility] Last Admin: 06/05/25 08:50 Dose: 25 mg Risperidone (Risperidone 1 Mg Tablet) 1 mg PO BID [facility] Last Admin: 06/05/25 08:50 Dose: 1 mg Thiamine HCl (Thiamine Hcl 100 Mg Tablet) 100 mg PO DAILY [facility] Last Admin: 06/05/25 08:50 Dose: 100 mg Trazodone HCl (Trazodone Hcl 50 Mg Tablet) 50 mg PO BEDTIME MRX1 PRN PRN Reason: Insomnia Allergies Allergies Allergy/AdvReac Type Severity Reaction Status Date / Time Peanut Butter Allergy Shortness Verified 05/30/25 01:53 of Breath Assessment & Plan Assessment & Plan (1) Psychotic disorder: Status: Acute Code(s): F29 - Unspecified psychosis not due to a substance or known physiological condition (2) Cocaine use disorder: Status: Acute Code(s): F14.10 - Cocaine abuse, uncomplicated (3) Heroin use disorder, severe: Status: Acute Code(s): F11.20 - Opioid dependence, uncomplicated (4) HIV (human immunodeficiency virus infection): Status: Acute Code(s): Z21 - Asymptomatic human immunodeficiency virus [HIV] infection status Plan HPI: Patient is a 44-year-old male with history of heroin/cocaine abuse, history of inpatient admissions, who is allergic to peanut butter who self-presents with paranoid ideations prompting him to eat peanut butter to cause an allergic reaction. Regarding why patient came to the hospital: Patient says that he came to the hospital because they were going to. do something to me.. Kill me... But he does not know why. He said people with sticks and guns surrounded me... I had to make a scene like I was going to have an allergic reaction so I could get away... Patient says that I was talking to a person and people were passing by, they were looking at me, some were standing at the corner but they kept walking because they knew there were cameras. They would follow me... If I looked at them they would just passed by and pretend not to follow me... Regarding the guns and sticks, patient said that when he looked at them they would hide their guns (and sticks) in a tree so that the police would not see... But he did not actually see the gun. Patient denies any AVH. Patient denies any SI at all and or that eating peanut butter was in any way a suicide attempt; rather he reiterates that he ate the peanut butter in an attempt to get away from these people since allergic reaction would get him to the hospital. Patient said he did not have much of an allergic reaction but self presented to the hospital anyway. Patient reports daily cocaine/opiate IV use; denies any alcohol. Earlier to nursing staff he reportedly endorsed SI and CAH Formulation/clinical reasoning: Patient reports paranoid ideations; to scientific writer he denies any AVH but it seems he reported AH earlier to a nurse. Patient has a history of inpatient psychiatric admissions. Can not find any history of medication prescriptions and patient said the only psychiatric medication he has been on before was Seroquel 25 mg b.i.d.. 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 Will help treat withdrawal and consider antipsychotic medication Hospital course: 06/01 pt guarded, vague; says he's good He denies any SI or HI or CAH; scientific writer asked about this report he gave to nursing, but patient says he does not remember ever saying those things. He says he has a little AH but does not want to talk about it...says he has no other thoughts about his report yesterday of people chasing him with guns and sticks. He agrees to start on Risperdal. -confirms HIV status and says regularly attends clinic in [place] -Regarding substance abuse, patient clearly says he does not want any increase in Methadone; he is ambivalent about programs -pt asked about 3 day which was explained again 06/02: Laying in bed. Sleeping most of day. Guarded. Patient reports feeling fine ; he reports sleeping okay last night. declined to meet with T/W. denies SI/HI/VH/AH. Continue current tx plan. 06/03: Active on unit. keeping to self. pacing unit hallway while listening to music. Patient reports feeling okay ; denies SI/HI/VH/AH. Continue current tx plan. 06/04: Continue current tx plan. 06/05 Patient reports that he is doing better, mood is better, no SI, no AVH and that he would like to discharge tomorrow. Says he is still feeling anxious and clonidine has not helped (though he has only tried it once); reviewed options and patient mentioned gabapentin however he is discharging tomorrow and struggles with substance abuse thus scientific writer did not think it was a good time to start this medication. Patient says he still has some worries about the people that chased him with guns but overall not thinking about it too much -not sure exactly what to make of this reported experience and possibly there could be factual component -scientific writer asked patient if he would like to remain on the unit and continue working on things, continue with medication management and address anxiety however patient said he wants to discharge tomorrow Patient is not in imminent risk for harm to self or others; he remains vulnerable to relapse however this is a chronic struggle that will not change with longer stay on inpatient unit. Patient is appropriate to return to the community for treatment in his request for discharge honored. Plan: CV Q 15 minute checks Comfort medications for opiate withdrawal Methadone 45 mg daily Start Risperdal 1mg bID Patient educated on: diagnosis, medication risk/benefits and therapeutic strategies Informed Consent: understands Reason for continued inpatient stay Substantial Risk for: stable for discharge Time Spent With Patient Time: Total time managing care of this patient today ____ minutes.
--- NOTE | 2025-06-05 16:44 | PM.PSYDC ---
DS: Providers Provider Date of Service: 06/06/25 Date of admission: 05/30/25 11:39 Date of discharge: 06/06/25 Primary care physician: Unknown Physician Attending physician on admission: Ted Frank Consults: 05/30/25 19:05 Addiction Medicine Provider Routine Consulting Provider: Addiction Covering Reason for consultation: jo 05/31/25 09:42 Consult to Comprehensive Care [place]ine [place] [facility] [place] [facility] Attending physician on discharge: Ted Frank DS: Diagnosis Discharge Diagnosis (1) Psychotic disorder: Status: Acute (2) Cocaine use disorder: Status: Acute (3) Heroin use disorder, severe: Status: Acute (4) HIV (human immunodeficiency virus infection): Status: Acute DS: Medications Discharge Medications Home Medications: Home Medications ?Medication ?Instructions ?Recorded ?Confirmed emtricitabine 200 mg-rilpivirine 1 tab PO DAILY 05/30/25 05/30/25 25 mg-tenofovir alafenam 25 mg tablet (Han) famotidine 40 mg tablet 40 mg PO DAILY 05/30/25 05/30/25 methadone 5 mg/5 mL oral solution 45 mg PO DAILY 05/30/25 05/30/25 Mental Status Exam Mental Status Exam Narrative: Pt is alert and oriented; behavior is cooperative, friendly, calm; patient is not in distress; dressed in casual attire with braided hair and adequate hygiene; mood is described as good and affect congruent, brighter; eye contact appropriate; Speech is normal rate, volume and prosody and not pressured; no psychomotor agitation/retardation present; thought process is organized and goal directed; Thought content is on discharge; no expressed delusional thinking; denies any SI/HI. Denies AVH and there is no evidence of perceptual disturbance. Patients insight and judgment fair. Data Data Completed and Pending Completed studies during hospitalization [Text1]: 05/30/25 05/30/25 05/30/25 03:58 07:42 10:53 WBC 5.7 RBC 4.52 L Hgb 11.9 L Hct 34.6 L MCV 76.5 L MCH 26.3 L MCHC 34.4 RDW 16.4 H Plt Count 172 MPV 10.7 Immature Gran % (Auto) 0.4 Neut % (Auto) 56.5 Lymph % (Auto) 30.8 [place] % (Auto) 8.8 Eos % (Auto) 3.3 Baso % (Auto) 0.2 Lymph # (Auto) 1.8 [place] # (Auto) 0.5 Eos # (Auto) 0.2 Baso # (Auto) 0.0 Abs Immat Gran (auto) 0.02 Absolute Neuts (auto) 3.2 Absolute Nucleated RBC 0.000 Nucleated RBC % (auto) 0.0 Sodium 135 135 Potassium 2.8 L* 3.1 L Chloride 101 103 Carbon Dioxide 24 28 Anion Gap 13 7 L BUN 13 10 Creatinine 0.81 0.68 Estim Creat Clear Calc 133.5 159.0 Estimated GFR > 60 > 60 Random Glucose 102 114 Estimat Average Glucose Hemoglobin A1c % Calcium 9.1 9.0 Magnesium 1.9 Total Bilirubin 0.4 0.4 AST 62 H 51 H ALT 32 31 Alkaline Phosphatase 79 81 Total Protein 7.2 7.1 Albumin 4.1 4.0 Triglycerides Cholesterol LDL Cholesterol, Calc HDL Cholesterol TSH Urine Color Dark Yellow Urine Appearance Turbid Urine pH 6.0 Ur Specific [place] 1.025 Urine Protein Trace Urine Glucose (UA) Negative Urine Ketones Trace Urine Blood Negative Urine Nitrite Negative Ur Leukocyte Esterase Negative Urine Opiates Screen POSITIVE H Ur Buprenorphine Scrn Not Detected Ur Oxycodone Screen Not Detected Urine Methadone Screen Positive H Urine Fentanyl Screen POSITIVE H Ur Barbiturates Screen Not Detected Ur Phencyclidine Scrn Not Detected Ur Amphetamines Screen Not Detected U Benzodiazepines Scrn POSITIVE H Urine Cocaine Screen POSITIVE H U Marijuana (THC) Screen POSITIVE H Ethyl Alcohol < 10 05/31/25 09:22 WBC RBC Hgb Hct MCV MCH MCHC RDW Plt Count MPV Immature Gran % (Auto) Neut % (Auto) Lymph % (Auto) [place] % (Auto) Eos % (Auto) Baso % (Auto) Lymph # (Auto) [place] # (Auto) Eos # (Auto) Baso # (Auto) Abs Immat Gran (auto) Absolute Neuts (auto) Absolute Nucleated RBC Nucleated RBC % (auto) Sodium 139 Potassium 3.6 Chloride 103 Carbon Dioxide 29 Anion Gap 11 L BUN 11 Creatinine 0.78 Estim Creat Clear Calc 134.8 Estimated GFR > 60 Random Glucose 91 Estimat Average Glucose 114 Hemoglobin A1c % 5.6 Calcium 9.4 Magnesium Total Bilirubin AST ALT Alkaline Phosphatase Total Protein Albumin Triglycerides 60 Cholesterol 88 LDL Cholesterol, Calc 46 HDL Cholesterol 30 L TSH 0.88 Urine Color Urine Appearance Urine pH Ur Specific [place] Urine Protein Urine Glucose (UA) Urine Ketones Urine Blood Urine Nitrite Ur Leukocyte Esterase Urine Opiates Screen Ur Buprenorphine Scrn Ur Oxycodone Screen Urine Methadone Screen Urine Fentanyl Screen Ur Barbiturates Screen Ur Phencyclidine Scrn Ur Amphetamines Screen U Benzodiazepines Scrn Urine Cocaine Screen U Marijuana (THC) Screen Ethyl Alcohol DS: Summary Hospital Course Hospital Course: HPI: Patient is a 44-year-old male with history of heroin/cocaine abuse, history of inpatient admissions, who is allergic to peanut butter who self-presents with paranoid ideations prompting him to eat peanut butter to cause an allergic reaction. Regarding why patient came to the hospital: Patient says that he came to the hospital because they were going to. do something to me.. Kill me... But he does not know why. He said people with sticks and guns surrounded me... I had to make a scene like I was going to have an allergic reaction so I could get away... Patient says that I was talking to a person and people were passing by, they were looking at me, some were standing at the corner but they kept walking because they knew there were cameras. They would follow me... If I looked at them they would just passed by and pretend not to follow me... Regarding the guns and sticks, patient said that when he looked at them they would hide their guns (and sticks) in a tree so that the police would not see... But he did not actually see the gun. Patient denies any AVH. Patient denies any SI at all and or that eating peanut butter was in any way a suicide attempt; rather he reiterates that he ate the peanut butter in an attempt to get away from these people since allergic reaction would get him to the hospital. Patient said he did not have much of an allergic reaction but self presented to the hospital anyway. Patient reports daily cocaine/opiate IV use; denies any alcohol. Earlier to nursing staff he reportedly endorsed SI and CAH Hospital course: Patient reports paranoid ideations; to principal technical writer he denies any AVH but it seems he reported AH earlier to a nurse. Patient has a history of inpatient psychiatric admissions. Can not find any history of medication prescriptions and patient said the only psychiatric medication he has been on before was Seroquel 25 mg b.i.d.. 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 Will help treat withdrawal and consider antipsychotic medication 06/01 pt guarded, vague; says he's good He denies any SI or HI or CAH; principal technical writer asked about this report he gave to nursing, but patient says he does not remember ever saying those things. He says he has a little AH but does not want to talk about it...says he has no other thoughts about his report yesterday of people chasing him with guns and sticks. He agrees to start on Risperdal. -confirms HIV status and says regularly attends clinic in [place] -Regarding substance abuse, patient clearly says he does not want any increase in Methadone; he is ambivalent about programs -pt asked about 3 day which was explained again 06/02: Laying in bed. Sleeping most of day. Guarded. Patient reports feeling fine ; he reports sleeping okay last night. declined to meet with T/W. denies SI/HI/VH/AH. Continue current tx plan. 06/03: Active on unit. keeping to self. pacing unit hallway while listening to music. Patient reports feeling okay ; denies SI/HI/VH/AH. Continue current tx plan. 06/04: Continue current tx plan. 06/05 Patient reports that he is doing better, mood is better, no SI, no AVH and that he would like to discharge tomorrow. Says he is still feeling anxious and clonidine has not helped (though he has only tried it once); reviewed options and patient mentioned gabapentin however he is discharging tomorrow and struggles with substance abuse thus principal technical writer did not think it was a good time to start this medication. Patient says he still has some worries about the people that chased him with guns but overall not thinking about it too much -not sure exactly what to make of this reported experience and possibly there could be factual component -principal technical writer asked patient if he would like to remain on the unit and continue working on things, continue with medication management and address anxiety however patient said he wants to discharge tomorrow On day of discharge, pt friendly, out of his room, social with peers and thanked principal technical writer for help received. Remained in good behavioral and impulse control and denies psychiatric symptoms. Patient is not in imminent risk for harm to self or others; while he remains vulnerable to relapse, this is a chronic struggle that will not change with longer stay on inpatient unit. Patient is appropriate to return to the community for treatment in his request for discharge honored. Diagnosis: For now will diagnose with Schizoaffective disorder (provisional diagnosis!) It remains possible however that his psychotic symptoms were due to a combination of mood congruent/drug-induced/PTSD- induced psychotic symptoms. But for most of the admission, was either guarded or disinterested in discussing his psychiatric symptoms which made it difficult to further assess. Medication: started on Risperdal Time spent discussing smoking cessation with patient: 3 to 10 minutes Status at Discharge Functional status at discharge: independent ambulation Overall status at discharge: patient is back to baseline Time Spent with Patient Time attestation: Total time managing care of this patient today 40____ minutes. Time spent: Greater than 30 minutes Specific discharge activities: Met with patient; discussed with team; charting; prescriptions Discharge Plan Discharge Anticipated Discharge Date/Time: 06/06/25 09:24 Patient Disposition: [facility] Discharge Diagnosis: Schizoaffective disorder (provisional), depressed type (VS MDD with psychosis vs drug induced psychosis) Referrals: [facility] [Other] - 3-5 Days Referral Note: Social work called and left two messages with casey saw operator Marlyn. Please follow up with her in the community. [facility] Intake [facility] [Other] - 06/14/25 11:00 am Referral Note: This appointment is in-person and is an intake for psychiatry and therapy. You must make this appointment if you want to continue prescribed psychiatry medications. Social work has also made a referral for the Community Support Program (CSP), which is a short term intensive case management, to support with things like housing, and other community resources. [facility] [Other] - 1 Day Referral Note: Call the number for emergency intermediate. [employer] [facility] [place] [Other] - 1 Week [facility] [Other] - 1 Day Referral Note: Wednesday, 11:30 AM ? 12:30 PM, [facility] Wednesday, 11:30 AM ? 12:30 PM, [facility] Wednesday, 11:30 AM ? 12:30 PM, [facility] , 11:30 AM ? 12:30 PM, [facility] Physician,Unknown J [Primary Care Provider, Medical] - 1 Week Discharge Medications: New nicotine 21 mg/24 hr Patch 24 Hour 21 mg transdermal DAILY PRN (Reason: smoking cessation) 28 Days Qty: 28 0RF nicotine (polacrilex) 4 mg gum 4 mg buccal Q2H PRN (Reason: nicotine cravings) 30 Days Qty: 100 0RF risperidone 1 mg Tablet 1 mg PO BID 30 Days Qty: 60 0RF clonidine HCl 0.1 mg Tablet 0.1 mg PO Q4H PRN (Reason: mod anxiety) 30 Days Qty: 60 0RF Protocol: Hold for SBP< HOLD for SBP < : 90 Continued famotidine 40 mg tablet 40 mg PO DAILY methadone 5 mg/5 mL Solution 45 mg PO DAILY Rx Instructions: Take home 45mg daily from [facility] [place] [id number] mg tablet 1 tab PO DAILY 30 Days Qty: 30 0RF Discharge Orders: Discharge Order (Routine); Ordered 06/06/25 Ordered By: Ted Frank Diet: Regular diet Activity on Discharge: As tolerated Stand Alone Forms: Patient Portal Discharge page, Community Support Print Language: Citizen Of [place] Care Plan Goals: Maintain mood and safe behaviors Take medications as prescribed Continue to pursue sobriety Practice coping skills Continue with outpatient providers and reach out to them as needed Health Concerns: Mood stability and behaviors Sobriety HIV Plan of Treatment: Follow up with your PCP, psychiatric provider and other outpatient providers regarding above concerns Take medications as prescribed Assessment: Risk assessment at time of discharge:? Patient was interviewed prior to discharge and found to be fully oriented and without any SI or HI. Patient has improved insight and judgment and wants to continue treatment. Patient is not in imminent risk of harm to self or others and has a safety plan that includes presenting to the closest ER or calling 911 if feeling unsafe.? Patient has been observed closely by nursing and unit staff throughout admission; patient has not engaged in any behaviors that suggest dangerousness to self or others and has demonstrated appropriate behaviors and impulse control Discharge Date/Time: 06/06/25 11:00
[2025-06-05 20:00] VITALS: BP 134/70; PULSE 66; TEMP 36.6; O2SAT 98
[2025-06-06] MEDS: methADONE HCl 20 MG/2 ML ORAL.CONC 45 MG PO (07:42)
[2025-06-06 07:59] VITALS: BP 115/86; PULSE 95; TEMP 36.4; O2SAT 100
[2025-06-06] MEDS: Emtricitabine/Tenofov Alafenam TABLET 1 TAB PO (09:04)
[2025-06-06] MEDS: Naloxone HCl Nasal TAKE HOME 4 MG SPRAY 8 MG NOSTRILALT (09:06)
[2025-06-06] MEDS: Nicotine 21 MG PATCH.TD24 TRANSDERMA (09:52)
== END 2025-06-06 11:00 | disposition home or self-care (01) | DRG 750 ==
LOC: HO.ED 08:59 → HO.PM5 11:54
PROVIDERS: Admitting Provider Psychiatry & Neurology Psychiatry; Emergency Provider Emergency Medicine; Visit Provider Psychiatry & Neurology Psychiatry
DX: F25.1 Schizoaffective disorder, depressive type (principal); R45.851 Suicidal ideations; Z21 Asymptomatic human immunodeficiency virus [HIV] infection status; F11.20 Opioid dependence, uncomplicated; F14.10 Cocaine abuse, uncomplicated; F17.210 Nicotine dependence, cigarettes, uncomplicated; Z71.6 Tobacco abuse counseling; Z79.899 Other long term (current) drug therapy
CPT/HCPCS: 36415; 71045; 80048; 80053; 80061; 80307; 81003; 83036; 83735; 84443; 85025; 93005; 99285; J8540; S9485

== ENCOUNTER → 2025-05-30 02:38 | Outpatient (BNV) | payer OTHER, SELFPAY | PROVIDERS: Visit Provider Radiology Diagnostic Radiology | DX: R07.9 Chest pain, unspecified (principal) | CPT/HCPCS: 71045 ==

== ENCOUNTER → 2025-05-30 02:38 | Outpatient (BNV) | payer OTHER, SELFPAY | PROVIDERS: Admitting Provider Psychiatry & Neurology Psychiatry; Emergency Provider Emergency Medicine; Visit Provider Internal Medicine | DX: R94.31 Abnormal electrocardiogram [ECG] [EKG] (principal); T78.40XA Allergy, unspecified, initial encounter | CPT/HCPCS: 93010 ==

== ENCOUNTER → 2025-05-30 11:39 | Outpatient (BNV) | payer OTHER, SELFPAY | PROVIDERS: Admitting Provider Psychiatry & Neurology Psychiatry; Emergency Provider Emergency Medicine; Visit Provider Psychiatry & Neurology Psychiatry | DX: F29 Unspecified psychosis not due to a substance or known physiological condition (principal); F14.10 Cocaine abuse, uncomplicated; F11.20 Opioid dependence, uncomplicated; Z21 Asymptomatic human immunodeficiency virus [HIV] infection status | CPT/HCPCS: 90792; 99231; 99232; 99239 ==